=== PATIENT | male | born 1985 | race Caucasian/White ===

== ENCOUNTER 2020-08-17 09:28 | Emergency (ER) | payer OTHER ==
[~2020-08-17] VITALS: Ht 188 cm; Wt 95.3 kg
[~2020-08-17 09:28] MED LIST: INTESTINEX1 CAP PO; PERCOCET 5-3251 EACH PO
[2020-08-17] MEDS ORDERED: VOLTAREN100 GM TOP (12:05)
[2020-08-17] MEDS ORDERED: KETO10TA2 PO (12:05)
[2020-08-17] MEDS ORDERED: SKELAXIN800 MG PO (12:05)
== END 2020-08-17 12:20 | disposition home or self-care (01) ==
LOC: ER 09:28
DX: M25.512 Pain in left shoulder (principal); M54.2 Cervicalgia